=== PATIENT | female | born 1940 | race Caucasian/White ===

== ENCOUNTER → 2016-10-01 | Outpatient (CLI) | payer MEDICARE ==
[2016-10-01 12:57] LABS: Basophils % (A) 1 %; CH 30.7; CHCM 32.3; Eosinophils # (A) 0.2 k/uL (0-0.7); Eosinophils % (A) 3 %; HCT 39.1 % (34.0-46.0); HDW 2.34; HGB 12.6 gm/dL (11.4-16.0); Luc # (Auto) 0.16; Luc % (Auto) 3; Lymphocytes # (A) 1.5 k/uL (1.0-4.8); Lymphocytes % (A) 31 %; MCH 30.8 pg (25.0-35.0); MCHC 32.3 g/dL (31.0-37.0); MCV 95.4 fL (80.0-100.0); Mean Platelet Volume 8.1; Monocytes # (A) 0.3 k/uL (0-1.0); Monocytes % (A) 7 %; Neutrophils # (A) 2.7 k/uL (1.3-7.7); Neutrophils % (A) 55 %; RDW 13.5 % (11.5-15.5); WBC 4.9 k/uL (3.8-10.6); WBC (Perox) 4.92
[2016-10-01 13:04] LABS: ALT 54 U/L (9-52); AST 42 U/L (14-36); Alkaline Phosphatase 64 U/L (38-126); Anion Gap 13 mmol/L; Blood Urea Nitrogen 17 mg/dL (7-17); Calcium 9.9 mg/dL (8.4-10.2); Carbon Dioxide 30 mmol/L (22-30); Chloride 101 mmol/L (98-107); Cholesterol 271 mg/dL (<200); Creatine Kinase 68 U/L (30-135); Glucose 124 mg/dL (74-99); HDL Cholesterol 48 mg/dL (40-60); Non-African American GFR(MDRD) 54 (>60 ml/min/1.73 sqM); Potassium 4.1 mmol/L (3.5-5.1); Sodium 144 mmol/L (137-145); Total Bilirubin 0.3 mg/dL (0.2-1.3); Total Protein 7.2 g/dL (6.3-8.2); Uric Acid 8.5 mg/dL (3.7-7.4)
[2016-10-01 13:29] LABS: Triglycerides 579 mg/dL (<150)
== END | disposition home or self-care (01) ==
LOC: LABWHC1 11:17
PROVIDERS: ATTEND Family Medicine
DX: E78.5 Hyperlipidemia, unspecified (principal); E03.9 Hypothyroidism, unspecified; M10.9 Gout, unspecified
CPT/HCPCS: 36415; 80053; 80061; 82550; 84439; 84443; 84550; 85025

== ENCOUNTER → 2016-11-27 | Outpatient (CLI) | payer MEDICARE ==
--- NOTE | 2016-11-27 08:39 | US ---
EXAMINATION TYPE: US abdomen complete DATE OF EXAM: 11/27/2016 COMPARISON: Previous study dated 11/15/2014. CLINICAL HISTORY: R74.8 ABN LIVER ENZYMES. Elevated liver enzymes EXAM MEASUREMENTS: Liver Length: 18.7 cm Gallbladder Wall: 0.3 cm CBD: 0.4 cm Spleen: 10.8 cm Right Kidney: 11.0 x 5.3 x 5.8 cm Left Kidney: 11.5 x 5.3 x 5.6 cm Pancreas: visualized portions wnl, tail obscured by overlying midline bowel gas Liver: enlarged at 18.7cm, overall somewhat increased echogenicity with 2.2cm hypoechoic area memo hepatis Gallbladder: wnl Evidence for sonographic Hobbs's sign: yes CBD: visualized portions wnl Spleen: visualized portions wnl, limited by overlying bowel gas Right Kidney: 3.5 x 2.2 x 2.7cm hypoechoic area midpole, 2.9 x 2.4 x 2.5cm hypoechoic area inferior pole Left Kidney: 2.3cm hypoechoic area midpole, multiple small cystic areas with largest measuring 1.1cm Upper IVC: wnl Abd Aorta: visualized portions wnl, distal aorta obscured by overlying midline bowel gas The pancreas is poorly visualized. The liver is enlarged measuring 18.7 cm. It is echogenic and likely fatty infiltrated. There appears to be some fatty sparing near the memo hepatis. The gallbladder is normal without cholelithiasis. The gallbladder wall measures 3 mm. The distal comm on hepatic duct measures 4 mm. There is a slightly irregular, 3.5 cm hypoechoic region in the right renal pelvis. This is not a cyst . There is a more subtle but similar appearance to the left kidney where there is a 1.1 cm hypoechoic region in the region of the renal pelvis. The spleen is normal in size. Visualized portions of aorta and IVC are normal. IMPRESSION: 1. HEPATOMEGALY AND FATTY INFILTRATION OF THE LIVER. 2. SOLID APPEARING MASS IN THE RIGHT RENAL PELVIS AND A SMALLER, SIMILAR APPEARANCE TO THE LEFT RENAL PELVIS. FURTHER INVESTIGATION WITH CT WOULD BE SUGGESTED TO EXCLUDE TRANSITIONAL CELL CARCINOMA.
== END | disposition home or self-care (01) ==
LOC: RADUSWWP 07:31
PROVIDERS: ATTEND Family Medicine
DX: K76.0 Fatty (change of) liver, not elsewhere classified (principal); R16.0 Hepatomegaly, not elsewhere classified; N28.89 Other specified disorders of kidney and ureter
CPT/HCPCS: 76700

== ENCOUNTER → 2016-12-25 | Outpatient (CLI) | payer MEDICARE ==
--- NOTE | 2016-12-25 15:11 | CT ---
EXAMINATION TYPE: CT abdomen pelvis wo con DATE OF EXAM: 12/25/2016 COMPARISON: Prior CT 11/12/2014, ultrasound 11/27/2016, ultrasound 11/15/2014 HISTORY: Patient has no complaints at time of study. Follow up study for a renal mass found on ultra sound. CT DLP: 860.3 mGycm Automated exposure control for dose reduction was used. TECHNIQUE: Helical acquisition of images from the lung bases through the pelvis. FINDINGS: Lack of contrast may compromise sensitivity. LUNG BASES: No significant abnormality is appreciated. AORTA: No significant abnormality is appreciated. LIVER/GB: The liver is enlarged. There is low attenuation. Gallbladder unremarkable. PANCREAS: No significant abnormality is seen. SPLEEN: No significant abnormality is seen. ADRENALS: No significant abnormality is seen. KIDNEYS: Multiple low dense foci associated with the right and left kidney show a similar appearance and there is a retroaortic left renal vein. REPRODUCTIVE ORGANS: No significant abnormality is seen. URINARY BLADDER: No significant abnormality is seen. BOWEL: There is retained fecal debris throughout the distribution of the colon.. FREE AIR: No Free Air is visible. ASCITES: None visible. PELVIC ADENOPATHY: None visualized. RETROPERITONEAL ADENOPATHY: No Retroperitoneal Adenopathy visible. OSSEOUS STRUCTURES: Spinal curvature, degenerative disc changes again noted.. IMPRESSION: EXAM IS STABLE COMPARED TO PRIOR CT 11/12/2014, FINDINGS THOUGHT TO REPRESENT SIMPLE CYST. NONCONTRAST EXAM, CONTRAST-ENHANCED EXAM OR MRI FOR BETTER EVALUATION.
== END | disposition home or self-care (01) ==
LOC: RADCTMAIN 14:08
PROVIDERS: ATTEND Family Medicine
DX: N28.89 Other specified disorders of kidney and ureter (principal)
CPT/HCPCS: 74176

== ENCOUNTER → 2024-11-10 | Outpatient (CLI) | payer MEDICARE ==
--- NOTE | 2024-11-10 17:39 | CT ---
EXAMINATION TYPE: CT chest wo con DATE OF EXAM: 11/10/2024 3:57 PM COMPARISON: None CLINICAL INDICATION: Female, 84 years old with history of R91.8 PULMONARY NODULES I50.32 CHF; PHH, pu lmonary nodules TECHNIQUE: Multiple axial images were obtained through the chest. Sagittal and coronal reformats were created for review. MIP was performed on a separate workstation. Contrast used: mL of (None if empty) Oral contrast used: (None if empty) CT DLP: 462.7 mGycm, Automated exposure control for dose reduction was used. FINDINGS: LUNGS/ PLEURA: No focal consolidation, pneumothorax or pleural effusion. AIRWAY: Patent and unremarkable. HEART: Cardiomegaly is demonstrated. No significant coronary artery calcifications. MEDIASTINUM: No gross evidence of adenopathy. VASCULATURE: No aortic aneurysm. MUSCULOSKELETAL: Moderate disc degeneration changes are present throughout the thoracolumbar spine se condary to osteophyte formation and facet joint arthropathy. there are stimulator lead terminates sac . SOFT TISSUES/LYMPH NODES: Suspected postprocedural changes to the left breast. LOWER NECK: No significant findings. UPPER ABDOMEN: Bilateral renal cortical and peripelvic cysts no follow-up recommended. IMPRESSION: 1. No evidence for acute process. No suspicious pulmonary nodules. No priors available for compariso n. 2. Postprocedural changes left breast without evidence for lymphadenopathy or mass 3. Follow up recommendations for incidental pulmonary nodules, if there are any, are per [employer] or [employer]. https://radiopaedia.org/articles/crknmrtumx-[email or web address]?lang=us [facility], , 11/10/2024 5:37 PM
== END | disposition home or self-care (01) ==
LOC: RADCTMAIN 15:31
PROVIDERS: ATTEND Internal Medicine Pulmonary Disease
DX: I50.32 Chronic diastolic (congestive) heart failure (principal); R91.8 Other nonspecific abnormal finding of lung field; Z98.890 Other specified postprocedural states
CPT/HCPCS: 71250